=== PATIENT | male | born 1975 | race Caucasian/White ===

== ENCOUNTER 2016-12-19 14:31 | Day surgery (SDC) | payer OTHER ==
[~2016-12-19] VITALS: Ht 185.4 cm; Wt 94.9 kg
[2016-12-19 14:40] VITALS: BP 124/68; PULSE 63; TEMP 98.3
[2016-12-19] MEDS ORDERED: PRILOTC PO (14:59)
[2016-12-19] MEDS ORDERED: PHENERGAN 25 TA25 MG PO (14:59)
[2016-12-19] MEDS ORDERED: NORCO 325 MG-7.1 TAB PO (17:15)
[2016-12-19 19:30] VITALS: BP 135/86; PULSE 69; TEMP 98.3
[2016-12-19 20:00] VITALS: BP 123/73; PULSE 58
[2016-12-19 20:30] VITALS: BP 135/75; PULSE 83
[2016-12-19 21:00] VITALS: BP 129/72; PULSE 79; TEMP 98.3
[2016-12-20 01:03] VITALS: BP 103/68; PULSE 82; TEMP 98.3
[2016-12-20 05:09] VITALS: BP 118/70; PULSE 62; TEMP 98
[2016-12-20 09:32] VITALS: BP 127/80; PULSE 99; TEMP 97.7
== END 2016-12-20 10:11 | disposition home or self-care (01) ==
LOC: MEDICAL 14:31 → SDCO 14:31 → SURG 14:31 → EDSTATUS 16:00 → SURG 12-20 10:11 → SDCO 12-20 10:11
DX: K80.00 Calculus of gallbladder with acute cholecystitis without obstruction (principal); F17.210 Nicotine dependence, cigarettes, uncomplicated
CPT/HCPCS: J1100; J2175; J2405; J2704; J3010; J7030